=== PATIENT | male | born 2000 | race Caucasian/White ===

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

== ENCOUNTER 2022-02-18 07:16 | Emergency (ER) | payer OTHER ==
[2022-02-18 09:00] LABS: HEMOGLOBIN 14.9 gm/dl (14.0-17.5); RED BLOOD COUNT 5.16 M/UL (4.20-5.50); WHITE BLOOD COUNT 6.9 K/UL (4.5-11.0)
[2022-02-18 09:26] LABS: BUN/CREATININE RATIO 14 (0-10)
[2022-02-18] MEDS ORDERED: ZOFRAN 4 MG TAB4 MG PO (09:36)
== END 2022-02-18 10:00 | disposition home or self-care (01) ==
LOC: ER1 07:16
PROVIDERS: Physician Assistant
DX: G47.00 Insomnia, unspecified (principal); R51.9 Headache, unspecified; R11.0 Nausea
CPT/HCPCS: 71046; 80053; 82550; 82553; 84484; 85025; 93005; 99285

== ENCOUNTER 2022-05-08 00:48 | Emergency (ER) | payer OTHER ==
[~2022-05-08 00:48] MED LIST changes: +ZOFRAN 4 MG TAB4 MG PO
[2022-05-08 01:13] LABS: HEMOGLOBIN 15.4 gm/dl (14.0-17.5); RED BLOOD COUNT 5.24 M/UL (4.20-5.50); WHITE BLOOD COUNT 8.8 K/UL (4.5-11.0)
[2022-05-08 01:33] LABS: BUN/CREATININE RATIO 17 (0-10)
== END 2022-05-08 04:36 | disposition home or self-care (01) ==
LOC: ER1 00:48
PROVIDERS: Family Medicine
DX: J93.9 Pneumothorax, unspecified (principal)
CPT/HCPCS: 71046; 80053; 82550; 82553; 84484; 85025; 93005; 99285

== ENCOUNTER → 2022-05-21 | Outpatient (CLI) | payer OTHER | LOC: NM 08:37 | DX: K21.00 Gastro-esophageal reflux disease with esophagitis, without bleeding (principal) | CPT/HCPCS: 78264; A9541 ==